=== PATIENT | male | born 1995 | race Two or more races ===

== ENCOUNTER 2019-12-27 23:40 | Emergency (ER) | payer MEDICAID, OTHER ==
[~2019-12-27] VITALS: Ht 177.8 cm; Wt 86.0 kg
[2019-12-28] MEDS ORDERED: LIDOCAINE HCL 1% 20ML VIAL (Pyxis) INJ INFIL ONE (00:15)
[2019-12-28] MEDS ORDERED: HYDROCODONE/ACETAMINOPHEN 5/325MG TABLET PO ONE (00:15)
[2019-12-28 02:42] VITALS: BP 109/45
== END 2019-12-28 02:43 | disposition home or self-care (01) ==
LOC: ER 23:40
DX: S01.81XA Laceration without foreign body of other part of head, initial encounter (principal); Y08.89XA Assault by other specified means, initial encounter; Y93.89 Activity, other specified; Y92.89 Other specified places as the place of occurrence of the external cause; Y99.8 Other external cause status
CPT/HCPCS: 12013; 70450; 70486; 99285; J3490